=== PATIENT | male | born 1935 | race African-American/Black ===

== ENCOUNTER 2019-06-11 20:23 | Inpatient (IN) | payer MEDICARE, OTHER ==
[~2019-06-11] VITALS: Ht 170.2 cm; Wt 76.7 kg
[~2019-06-11 20:23] MED LIST: DILT240T12 PO; FINA5TAB11 PO; LISI-604 PO; METF-416 PO; POTA10CA42 PO; SIMV-43 PO; TAMS0.4C31 PO; TOLT4CAP13 PO
[2019-06-11] MEDS ORDERED: LORAZEPAM 0.5MG TABLET PO ONE (21:15)
[2019-06-11 21:31] LABS: BASOPHILS % 0.5 % (0.0-2.0); EOSINOPHILS % 1.9 % (0.0-5.0); HEMATOCRIT. 31.7 % (42.0-52.0); HEMOGLOBIN. 11.2 g/dL (14.0-18.0); LYMPHOCYTES % 16.2 % (20.0-50.0); MEAN CORPUSCULAR HEMOGLOBIN 31.3 pg (28.0-32.0); MEAN CORPUSCULAR VOLUME 88.7 fL (80.0-94.0); MEAN PLATELET VOLUME 6.5 fl (7.4-10.4); MONOCYTES % 9.9 % (2.0-8.0); NEUTROPHILS % 71.5 % (40.0-76.0); PLATELET 228 x1000/uL (130-400); RED BLOOD CELL COUNT 3.57 mill/uL (4.7-6.1); RED CELL DISTRIBUTION WIDTH 13.1 % (11.6-14.6)
[2019-06-11 21:37] LABS: CHLORIDE 105 mEq/L (98-107)
[2019-06-11] MEDS ORDERED: FUROSEMIDE 20MG/2ML VIAL IVP ONE (22:00)
[2019-06-12 05:25] VITALS: BP 133/69
[2019-06-12] MEDS ORDERED: ISOS30TA6 PO (06:24)
[2019-06-12] MEDS ORDERED: LORA-249 PO (06:24)
[2019-06-12] MEDS ORDERED: ASPI-1497 PO (06:24)
[2019-06-12] MEDS ORDERED: SPIR25TA6 PO (06:24)
[2019-06-12] MEDS ORDERED: MELA1TAB28 PO (06:24)
[2019-06-12 08:00] VITALS: BP 121/78
[2019-06-12] MEDS ORDERED: ISOSORBIDE MONONITRATE 30MG TABLET SR 24HR PO SCH (09:00)
[2019-06-12] MEDS ORDERED: FUROSEMIDE 40MG/4ML VIAL IV SCH (09:00)
[2019-06-12] MEDS: ASPIRIN 81MG TABLET PO SCH (09:55)
[2019-06-12] MEDS: DILTIAZEM HCL 120MG CAPSULE CD 24HR PO SCH (09:56)
[2019-06-12] MEDS: LISINOPRIL 20MG TABLET PO SCH (09:57)
[2019-06-12 12:00] VITALS: BP 118/71
[2019-06-12] MEDS ORDERED: DEXTROSE 50% WATER 50ML SYRINGE IV PRN (12:00)
[2019-06-12] MEDS: BLOOD SUGAR DIAGNOSTIC STRIP TEST SCH ×3 (12:11→19:57)
[2019-06-12] MEDS: INSULIN LISPRO 100 UNITS/ML SUBCUT SCH ×3 (12:12→20:52)
[2019-06-12] MEDS: FINASTERIDE 5MG TABLET PO SCH (12:43)
[2019-06-12] MEDS: LORAZEPAM 0.5MG TABLET PO PRN ×2 (13:03→22:05)
[2019-06-12 16:00] VITALS: BP 100/50
[2019-06-12] MEDS: ENOXAPARIN 30MG/0.3ML SYR SUBCUT SCH (16:00)
[2019-06-12] MEDS ORDERED: METFORMIN HCL 500MG TABLET PO SCH (18:10)
[2019-06-12] MEDS: ATORVASTATIN CALCIUM 20MG TABLET PO SCH (20:51)
[2019-06-12] MEDS: TAMSULOSIN HCL 0.4MG SR CAPSULE PO SCH (20:51)
[2019-06-13] VITALS: BP 125/60
[2019-06-13 04:00] VITALS: BP 130/65
[2019-06-13] MEDS: BLOOD SUGAR DIAGNOSTIC STRIP TEST SCH ×4 (06:05→21:21)
[2019-06-13] MEDS: INSULIN LISPRO 100 UNITS/ML SUBCUT SCH ×5 (06:13→21:00)
[2019-06-13 06:49] LABS: FOLIC ACID (FOLATE) SERUM 8.6 ng/mL (>5.38)
[2019-06-13 08:00] VITALS: BP 135/67
[2019-06-13] MEDS: DILTIAZEM HCL 120MG CAPSULE CD 24HR PO SCH (08:42)
[2019-06-13] MEDS: ASPIRIN 81MG TABLET PO SCH (08:42)
[2019-06-13] MEDS: FINASTERIDE 5MG TABLET PO SCH (08:42)
[2019-06-13] MEDS: LISINOPRIL 20MG TABLET PO SCH (08:42)
[2019-06-13] MEDS ORDERED: ENOXAPARIN 40MG/0.4ML SYR SUBCUT SCH (09:00)
[2019-06-13] MEDS ORDERED: FUROSEMIDE 40MG/4ML VIAL IVP SCH (09:00)
[2019-06-13] MEDS ORDERED: ENOXAPARIN 30MG/0.3ML SYR SUBCUT SCH (09:00)
[2019-06-13] MEDS: PAROXETINE HCL 10MG TABLET PO SCH (11:08)
[2019-06-13] MEDS: LORAZEPAM 0.5MG TABLET PO PRN (13:06)
[2019-06-13 16:00] VITALS: BP_SYST 110; BP_SYST 128; BP_DIAS 50; BP_DIAS 56
[2019-06-13] MEDS: FERROUS SULFATE 325MG TABLET PO SCH (17:28)
[2019-06-13] MEDS: ENOXAPARIN 30MG/0.3ML SYR SUBCUT SCH (17:29)
[2019-06-13] MEDS ORDERED: LORAZEPAM 0.5MG TABLET PO PRN (19:00)
[2019-06-13 20:00] VITALS: BP 116/65
[2019-06-13] MEDS: ATORVASTATIN CALCIUM 20MG TABLET PO SCH (20:38)
[2019-06-13] MEDS ORDERED: MELATONIN 3 MG TABLET PO PRN (21:00)
[2019-06-13] MEDS: TAMSULOSIN HCL 0.4MG SR CAPSULE PO SCH (21:33)
[2019-06-13 23:56] VITALS: BP 116/47
[2019-06-14 04:00] VITALS: BP 116/44
[2019-06-14] MEDS: BLOOD SUGAR DIAGNOSTIC STRIP TEST SCH (05:53)
[2019-06-14 07:19] LABS: BASOPHILS % 0.7 % (0.0-2.0); EOSINOPHILS % 4.1 % (0.0-5.0); HEMATOCRIT. 32.9 % (42.0-52.0); HEMOGLOBIN. 11.7 g/dL (14.0-18.0); MEAN CORPUSCULAR VOLUME 87.7 fL (80.0-94.0); MEAN PLATELET VOLUME 6.8 fl (7.4-10.4); MONOCYTES % 12.7 % (2.0-8.0); NEUTROPHILS % 43.5 % (40.0-76.0); PLATELET 228 x1000/uL (130-400); RED BLOOD CELL COUNT 3.76 mill/uL (4.7-6.1); RED CELL DISTRIBUTION WIDTH 12.9 % (11.6-14.6)
[2019-06-14] MEDS: INSULIN LISPRO 100 UNITS/ML SUBCUT SCH (07:31)
[2019-06-14] MEDS: FINASTERIDE 5MG TABLET PO SCH (08:11)
[2019-06-14] MEDS: LISINOPRIL 20MG TABLET PO SCH (08:11)
[2019-06-14] MEDS: PAROXETINE HCL 10MG TABLET PO SCH (08:12)
[2019-06-14] MEDS: FERROUS SULFATE 325MG TABLET PO SCH (08:12)
[2019-06-14] MEDS: ASPIRIN 81MG TABLET PO SCH (08:12)
[2019-06-14] MEDS: DILTIAZEM HCL 120MG CAPSULE CD 24HR PO SCH (08:25)
[2019-06-14] MEDS ORDERED: TAMSULOSIN HCL 0.4MG SR CAPSULE PO SCH (09:00)
[2019-06-14] MEDS ORDERED: FINASTERIDE 5MG TABLET PO SCH (09:00)
[2019-06-14] MEDS ORDERED: FUROSEMIDE 40MG TABLET PO SCH (09:00)
[2019-06-14] MEDS ORDERED: DILTIAZEM HCL 180MG CAPSULE CD 24HR PO SCH (09:00)
[2019-06-14] MEDS ORDERED: LISINOPRIL 20MG TABLET PO SCH (09:00)
[2019-06-14 09:32] VITALS: BP 139/55
[2019-06-14] MEDS ORDERED: LORAZEPAM 0.5MG TABLET PO SCH (21:00)
[2019-06-15] MEDS ORDERED: ASPIRIN 81MG EC TABLET PO SCH (09:00)
== END 2019-06-14 10:00 | disposition home or self-care (01) | DRG 291 ==
LOC: ER 20:23 → EDBEDREQTM 22:20 → 7WST 22:41 → EDBEDREQTM 22:47 → EDBEDREQ 22:47 → ENRESERV 06-12 04:07 → 7WST 06-12 05:46
PROVIDERS: ADMIT Internal Medicine Critical Care Medicine; ATTEND Internal Medicine Critical Care Medicine
DX: I13.0 Hypertensive heart and chronic kidney disease with heart failure and stage 1 through stage 4 chronic kidney disease, or unspecified chronic kidney disease (principal); I50.23 Acute on chronic systolic (congestive) heart failure; I42.9 Cardiomyopathy, unspecified; I08.3 Combined rheumatic disorders of mitral, aortic and tricuspid valves; I44.7 Left bundle-branch block, unspecified; N40.0 Benign prostatic hyperplasia without lower urinary tract symptoms; I48.0 Paroxysmal atrial fibrillation; N18.3 Chronic kidney disease, stage 3 (moderate); F41.9 Anxiety disorder, unspecified; D50.9 Iron deficiency anemia, unspecified; E11.22 Type 2 diabetes mellitus with diabetic chronic kidney disease; E78.5 Hyperlipidemia, unspecified; F17.200 Nicotine dependence, unspecified, uncomplicated; I27.21 Secondary pulmonary arterial hypertension; I44.0 Atrioventricular block, first degree; Z60.2 Problems related to living alone; J44.9 Chronic obstructive pulmonary disease, unspecified; Z96.1 Presence of intraocular lens; M19.90 Unspecified osteoarthritis, unspecified site; Z82.3 Family history of stroke; Z82.49 Family history of ischemic heart disease and other diseases of the circulatory system; Z83.3 Family history of diabetes mellitus; Z98.41 Cataract extraction status, right eye; Z98.42 Cataract extraction status, left eye; Z79.84 Long term (current) use of oral hypoglycemic drugs; Z79.899 Other long term (current) drug therapy
CPT/HCPCS: 36415; 71045; 80048; 80053; 80061; 82270; 82607; 82746; 82962; 83036; 83540; 83550; 83735; 83880; 84443; 84484; 85025; 93005; 97162; 99285; J1650; J1815; J1940